=== PATIENT | male | born 1995 | race Caucasian/White ===

== ENCOUNTER 2017-01-20 12:44 | Emergency (ER) | payer MEDICAID ==
[2017-01-20 12:49] VITALS: TEMP 97.3; O2SAT 99
--- NOTE | 2017-01-20 13:27 | EDPHY ---
H & P Stated Complaint: "I think I have a hernia in my L testicle" Time Seen by Provider: 01/20/17 13:15 HPI/ROS: CHIEF COMPLAINT: Left testicular pain and swelling HISTORY OF PRESENT ILLNESS: The patient presents to the ED with a 1 day history of left testicular pain and swelling. The patient reportedly has noted state intermittent swelling in his left scrotum over the past week. He does describe symptoms consistent with an intermittent inguinal hernia. The patient developed acute pain in his left inguinal area earlier today. He denies any fever, nausea, vomiting. REVIEW OF SYSTEMS: A comprehensive 10 point review of systems is otherwise negative aside from elements mentioned in the history of present illness. Source: Patient Exam Limitations: No limitations - Personal History Current Tetanus Diphtheria and Acellular Pertussis (TDAP): Yes - Medical/Surgical History Hx Asthma: No Hx Chronic Respiratory Disease: No Hx Diabetes: No Hx Cardiac Disease: No Hx Renal Disease: No Hx Cirrhosis: No Hx Alcoholism: No Hx HIV/AIDS: No Hx Splenectomy or Spleen Trauma: No Other PMH: mono - Social History Smoking Status: Current every day smoker - Physical Exam Exam: General Appearance: Alert, no distress Eyes: Pupils equal and round no pallor or injection ENT, Mouth: Mucous membranes moist Respiratory: There are no retractions, lungs are clear to auscultation Cardiovascular: Regular rate and rhythm Gastrointestinal: Abdomen is soft and nontender, no masses, bowel sounds normal Genitourinary: Palpable tenderness in the left inguinal area. There is no obvious large hernia. No clinical evidence of torsion Skin: Warm and dry, no rashes Musculoskeletal: Neck is supple nontender Extremities: symmetrical, full range of motion Constitutional: Initial Vital Signs Temperature (C) 36.3 C 01/20/17 12:46 Heart Rate 86 01/20/17 12:46 Respiratory Rate 18 01/20/17 12:46 Blood Pressure 111/73 01/20/17 12:46 O2 Sat (%) 99 01/20/17 12:46 Allergies/Adverse Reactions: No Known Allergies Allergy (Verified 01/20/17 12:45) Home Medications: Medication Instructions Recorded NK [No Known Home Meds] 01/20/17 Medical Decision Making - Diagnostics Imaging Results: Imaging Impressions Testicular Ultrasound 01/20/17 13:27 Impression: 1. No intratesticular masses. 2. No testicular torsion. 3. Small left hydrocele. Findings and recommendations discussed with Emergency Department physician, Devyn Hermosillo at 14:55 hour, 01/20/2017. Final report concurs with initial preliminary interpretation. ED Course/Re-evaluation: The patient presents to the ED for evaluation of left inguinal and scrotal pain. The patient has no obvious hernia on exam. He does have a very questionable area of a fascial defect noted on deep palpation of the inguinal ring. The patient was taken for a ultrasound which demonstrates no evidence of torsion or obvious hernia content. At this point time certainly possible the patient is having intermittent symptoms of a hernia. I have instructed the patient to follow up with our on- call surgeon for an outpatient evaluation this week. He should return to the ED immediately for any irreducible hernia, intractable pain, fever, vomiting or other concerns. The patient has no evidence of an acute testicle or incarcerated hernia currently. Differential Diagnosis: Differential diagnosis considered includes hernia, testicular torsion, ureterolithiasis, scrotal abscess Departure - Departure Disposition: Home, Routine, Self-Care Clinical Impression: Left inguinal pain Condition: Good Instructions: Groin Pain (ED) Additional Instructions: 1. Please schedule a follow-up appointment with the surgeon you have been referred to for further evaluation of your inguinal pain. 2. Please return to the ED for severe pain, a mass which will not go way, fever , vomiting or other concerns. 3. Take Ibuprofen or Motrin 600 mg by mouth three times a day. Referrals: Martin Steven MD [Medical Doctor] - As per Instructions
[2017-01-20 15:38] VITALS: BP 116/75; PULSE 78; RESP 16
== END 2017-01-20 15:37 | disposition home or self-care (01) ==
DX: R10.32 Left lower quadrant pain (principal); F17.200 Nicotine dependence, unspecified, uncomplicated

== ENCOUNTER 2017-01-25 12:28 | Emergency (ER) | payer MEDICAID ==
--- NOTE | 2017-01-25 13:12 | EDPHY ---
H & P Time Seen by Provider: 01/25/17 12:40 HPI/ROS: CHIEF COMPLAINT: Left groin pain HISTORY OF PRESENT ILLNESS: Patient is a 21-year-old male who presents emergency department with ongoing left groin pain. The patient was seen on Wednesday and states that he was diagnosed with a hernia. He is given follow-up with surgeon. Patient states his symptoms started last week. They are waxing waning. Today he has had more constant and severe left groin pain. He has had nausea with no vomiting. No diarrhea. Has no abdominal pain. No fevers or chills. Node dysuria or frequency. No flank pain. The patient states he sexual active no wheeze wears a condom. No penile discharge. REVIEW OF SYSTEMS: My complete review of systems is negative except as mentioned in the HPI. Past Medical/Surgical History: Denies Past surgical history: Denies Smoking Status: Current every day smoker Physical Exam: Vitals noted GENERAL: Well-appearing, in no acute distress, alert. HEENT: Eyes normal to inspection, normal pharynx, no signs of dehydration. NECK: No thyromegaly, no lymphadenopathy, supple. RESPIRATORY: Clear to auscultation bilaterally, no rales, rhonchi or wheezing. CVS: Regular rate and rhythm, no rubs, murmurs, or gallops. ABDOMEN: Soft, nontender, nondistended, no organomegaly. : Normal-appearing penis and scrotum. Testicles are nontender. No palpable mass. Patient has no palpable hernia. BACK: Normal to inspection, no CVA tenderness. SKIN: Normal color, no rash, warm, dry. No pallor. EXTREMITIES: No pedal edema, no calf tenderness, no Homans sign or cords, no joint swelling. NEURO/PSYCH: Alert and oriented x3, normal mood and affect, normal motor sensory exam. Constitutional: Initial Vital Signs Temperature (C) 36.6 C 01/25/17 12:32 Heart Rate 68 01/25/17 12:32 Respiratory Rate 20 01/25/17 12:32 Blood Pressure 104/65 01/25/17 12:32 O2 Sat (%) 99 01/25/17 12:32 O2 Delivery Mode Room Air Allergies/Adverse Reactions: No Known Allergies Allergy (Verified 01/25/17 12:31) Home Medications: Medication Instructions Recorded Hydrocodone/APAP 5/325 [[place] 1 - 2 tab PO Q4 #13 tab 01/25/17 5/325 (RX)] Medical Decision Making ED Course/Re-evaluation: In the emergency department I discussed possible etiologies with the patient. I reviewed his record from his previous visit. Reviewed his ultrasound of his groin and scrotum. No visible hernia or testicle abnormality. UA was ordered. UA negative I discussed the results with the patient. I answered all his questions. Patient is sexually active. He was given ceftriaxone 250 mg IM and azithromycin 1 g orally to cover for possible STD. I still considered hernia. However, at this time I do not feel he has an incarcerated or strangulated hernia. He will follow up with Dr. Singh. He was given warnings prior to leaving. He will return with worsening symptoms. Differential Diagnosis: My differential includes but is not limited to hernia, incarcerated hernia, strangulated hernia, STD, urinary tract infection - Data Points Laboratory Results: 01/25/17 13:37 Urine Color YELLOW Urine Appearance CLEAR Urine pH 6.0 (5.0-7.5) Ur Specific [place] 1.017 (1.002-1.030) Urine Protein NEGATIVE (NEGATIVE) Urine Ketones NEGATIVE (NEGATIVE) Urine Blood NEGATIVE (NEGATIVE) Urine Nitrate NEGATIVE (NEGATIVE) Urine Bilirubin NEGATIVE (NEGATIVE) Urine Urobilinogen NEGATIVE EU EU (0.2-1.0) Ur Leukocyte Esterase NEGATIVE (NEGATIVE) Urine Glucose NEGATIVE (NEGATIVE) Departure - Departure Disposition: Home, Routine, Self-Care Clinical Impression: Left groin pain Condition: Good Instructions: Groin Pain (ED) Additional Instructions: Return with severe pain, vomiting, fever, or any other concerns. Referrals: Vicente Adkins MD [Medical Doctor] - 5-7 days, call for appt. Prescriptions: Hydrocodone/APAP 5/325 [[place] 5/325 (RX)] 1 - 2 tab PO Q4 #13 tab
[2017-01-25 13:45] LABS: COLOR YELLOW; LEUKOCYTE ESTERASE,URINE NEGATIVE (NEGATIVE); NITRITE,URINE NEGATIVE (NEGATIVE)
[2017-01-25] MEDS ORDERED: AZITHROMYCIN 250 MG TAB PO ONE (14:02)
[2017-01-25] MEDS ORDERED: CEFTRIAXONE IM 350 MG/ML SYRINGE IM ONE (14:02)
[2017-01-25 15:20] VITALS: BP 95/65; PULSE 67; RESP 16; TEMP 98.2; O2SAT 97
== END 2017-01-25 15:20 | disposition home or self-care (01) ==
DX: R10.32 Left lower quadrant pain (principal); F17.200 Nicotine dependence, unspecified, uncomplicated
CPT/HCPCS: J0696